=== PATIENT | male | born 1945 | race Asian ===

== ENCOUNTER 2024-11-30 08:19 | Day surgery (SDC) | payer OTHER, SELFPAY ==
[2024-11-30] VITALS (11 sets, daily range): BP systolic 123–165; BP diastolic 59–71; BMI 21.0
[2024-11-30 09:02] LABS: Glucose - Point of Care 167 mg/dl (70-99)
[2024-11-30] MEDS: LOW STRENGTH ASPIRIN 81 MG PO (09:08)
[2024-11-30] MEDS: NSS 177 ML IV (09:09)
--- NOTE | 2024-11-30 13:17 | ITS.CL.PN ---
Therapy Technician - Procedure Note
Procedure
Procedure Note:
CARDIAC CATHETERIZATION REPORT
Date of Procedure: 11/30/2024
Referring: Dr. Oscar Patel MD
Indication: accelerating angina
PROCEDURE(S)
1. left heart catheterization
2. coronary angiography
ACCESS: 6F right radial artery (closure: radial band)
CATHETERS
1. 6F JR4
2. 6F JL3.5
MODERATE SEDATION: 25 minutes of moderate sedation was utilized. An independent bacteriologist medical was present to assist with and help manage the patient's level of consciousness and physiologic status.
HEMODYNAMIC DATA
LV 138/7 (EDP 11) mmHg
AO 131/62 (mean 92) mmHg
CORONARY ANGIOGRAPHY
Dominance: Left
LM: Large, with eccentric calcified 60% stenosis
LAD: Large vessel giving rise to a moderate caliber branching diagonal and wrapping around the apex. There is a long segment of mild to moderate calcified disease spanning the entire proximal to mid LAD with a focal area of 50-60% stenosis distal
to the D1 takeoff. The mid to distal vessel is relatively disease free. The diagonal is a 2.0 mm vessel with focal severe ostial disease and diffuse moderate disease throughout.
LCx: Large dominant vessel giving rise to a moderate caliber OM1, small OM2, small OM 3, large branching LPL1, small LPL 2, small LPL3, and moderate caliber LPDA. There is ostial 50% narrowing leading into the takeoff of the OM1. There is diffuse
mild disease throughout the mid vessel and a focal 95% stenosis in the distal vessel just after the takeoff of the LPL 1. There is PRIYANKA II flow distal to this stenosis which is likely the culprit vessel for the patient's accelerating angina. The
LPL1 has a focal 60% ostial stenosis and its smaller inferior limb has severe ostial stenosis. The distal LPL vessel and LPDA have mild diffuse disease.
RCA: Small nondominant vessel with mild disease.
RADIATION: dose 141 mGy; DAP 9.0 Gy*cm2; fluoroscopy time 2.4 min
CONCLUSIONS
1. Normal LV filling pressure and no aortic stenosis
2. Complex multivessel coronary artery disease in a left dominant system as described
RECOMMENDATIONS
1. Continue aspirin and metoprolol, start high intensity statin, start Imdur 30.
2. Referral for coronary artery bypass grafting with SCHREIBER-LAD and additional grafts to the OM1, LPL1, LPDA. As the distal LCx is likely the patient's culprit lesion
Copy to: Dr. Oscar Patel MD (manufacturing business analyst); Dr. Isai Jim MD (PCP)
Signed: Wang Garcia MD, PhD
[2024-11-30 13:43] LABS: Glucose - Point of Care 143 mg/dl (70-99)
== END 2024-11-30 16:00 | disposition home or self-care (01) ==
LOC: CATH 08:19
PROVIDERS: ATTENDING PHYSICIAN Student in an Organized Health Care Education/Training Program; FAMILY PHYSICIAN Internal Medicine; OTHER PHYSICIAN Internal Medicine Cardiovascular Disease
DX: I25.110 Atherosclerotic heart disease of native coronary artery with unstable angina pectoris (principal); Z79.84 Long term (current) use of oral hypoglycemic drugs; Z79.899 Other long term (current) drug therapy; I10 Essential (primary) hypertension; E11.9 Type 2 diabetes mellitus without complications; E87.5 Hyperkalemia
CPT/HCPCS: 99152; 99153; 82962; 93458; Q9967

== ENCOUNTER → 2024-12-14 09:17 | Outpatient (REF) | payer OTHER, SELFPAY | LOC: HWRAD 09:17 | PROVIDERS: ATTENDING PHYSICIAN Thoracic Surgery (Cardiothoracic Vascular Surgery); FAMILY PHYSICIAN Internal Medicine | DX: I25.10 Atherosclerotic heart disease of native coronary artery without angina pectoris (principal) | CPT/HCPCS: 71250 ==

== ENCOUNTER 2024-12-19 07:08 | Inpatient (IN) | payer OTHER, SELFPAY ==
[2024-12-18 08:42] VITALS: BMI 23.1
[2024-12-18 08:43] LABS: Hematocrit 39.7 % (39.0-52.0); Hemoglobin 12.8 g/dL (13.0-18.0); Mean Corp Hgb Conc. 32.2 g/dL (33.0-37.0); Mean Corpuscular Volume 87.3 fL (80.0-94.0); Nucleated Red Blood Cells % 0 % (-); Platelet Count 321 10^3/uL (130-400); Red Cell Dist. Width 12.3 % (11.5-14.5)
[2024-12-18 08:47] LABS: Urine Character Clear (Clear)
[2024-12-18 08:48] LABS: INR 1.01; PT 13.6 Sec (11.4-14.6)
[2024-12-18 09:08] LABS: ALT (SGPT) 22 U/L (0-50); AST (SGOT) 26 U/L (17-59); Albumin 5.1 g/dl (3.5-5.0); Alkaline Phosphatase 31 U/L (38-126); Blood Urea Nitrogen 26 mg/dl (9-20); Calcium 9.7 mg/dl (8.4-10.2); Carbon Dioxide 27 mmol/L (22-30); Chloride 100 mmol/L (98-107); Estimated Creatinine Clearance 39 ml/min; Glucose 283 mg/dl (70-99); Potassium 4.7 mmol/L (3.5-5.1); Sodium 138 mmol/L (135-145); Total Protein 8.0 g/dl (6.3-8.2); eGFR 55.53
[2024-12-18 09:14] LABS: Glycohemoglobin (HgbA1c) 7.7 % (4.0-5.9)
[2024-12-18 09:19] LABS: Urine Red Blood Cell None Seen /HPF (0-2); Urine Squamous Cell None seen /LPF (Few); Urine White Cell 0-2 /HPF (0-5)
--- NOTE | 2024-12-18 10:29 | CM ---
spoke tp pt and daughter (translated to Tajik) in PAT's. we discussed preop CABG teaching including sternal and driving restrictions. he is prev indep, lives with his in a 2 story home with 1 step to enter. pts in a phys well and able to
help him but does not drive . his daughter lives in [facility], will be here until dc from hospital. son lives in [place], but pt has 2 nephews who are closeby and very supportive who will be assisting him when needed. he denies dme's. he has the ct surgery
book, soap, and instructions. he is agreeable to a f/u visit from the ct transitional care nurse after dc. plan is for CABG 12/19. cm role explained and all questions answered.
[2024-12-19] VITALS (15 sets, daily range): BP systolic 91–151; BP diastolic 58–73; BMI 22.3
--- NOTE | 2024-12-19 07:07 | W.CVOR.SURPR ---
CVOR Surgeon Immed Pre Op
-
I have examined this patient prior to performance of the scheduled procedure.
The patient's condition is unchanged from the time of the dictated/written History and
Physical and the patient is able to undergo the scheduled procedure.
CABG + LAAE
[2024-12-19] MEDS: MAGNESIUM OXIDE 400 MG PO (07:18)
[2024-12-19] MEDS: LOPRESSOR 25 MG PO (07:18)
[2024-12-19] MEDS: BACTROBAN 2% OINTMENT 1 APPLIC NASAL ×2 (07:18→21:44)
[2024-12-19] MEDS: PROTONIX 40 MG PO (07:18)
--- NOTE | 2024-12-19 07:48 | PTCARENOTE ---
received pt pre op into 2265, confirmed NPO since MN, shower x2 HOSTESS CASHIER. Interview questions and med rec completed w assistance if Swedish oncology navigator, pt was clipped and prepped w CHG. Pre op medications administered.
[2024-12-19 08:11] LABS: ACT+ - POC 123 Seconds (82-134)
[2024-12-19 08:32] LABS: Urine Character Cloudy (Clear)
--- NOTE | 2024-12-19 09:00 | CM ---
pt in OR today, cm following
[2024-12-19 09:19] LABS: Urine Red Blood Cell 80-90 /HPF (0-2)
[2024-12-19 09:29] LABS: ACT+ - POC 544 Seconds (82-134)
[2024-12-19 09:57] LABS: ACT+ - POC 843 Seconds (82-134)
[2024-12-19 10:08] LABS: B.E. - POC 5.7 mmol/L; Glucose - POC 161 mg/dl (70-99); HCO3 - POC 30 mmol/L (21-28); Hematocrit - POC 28 % PCV (42-52); Hemodilution- POC Yes; Hemoglobin Calculated - POC 9.6; Ionized Calcium - POC 0.99 mmol/L (1.15-1.33); Lactate - POC 1.08 mmol/L (0.36-0.75); O2 Saturation %Calculated-POC 99.9 % (94-98); PCO2 - POC 40 mmHg (35-48); PO2 - POC 328 mmHg (83-108); POC Comment CPB; Potassium - POC 4.4 mmol/L (3.5-5.1); Sodium - POC 138 mmol/L (136-145); Specimen Type - POC Arterial; pH - POC 7.48 (7.35-7.45)
[2024-12-19 10:22] LABS: ACT+ - POC 718 Seconds (82-134)
[2024-12-19 10:34] LABS: B.E. - POC 4.8 mmol/L; Glucose - POC 153 mg/dl (70-99); HCO3 - POC 28 mmol/L (21-28); Hematocrit - POC 29 % PCV (42-52); Hemodilution- POC Yes; Hemoglobin Calculated - POC 9.8; Ionized Calcium - POC 1.00 mmol/L (1.15-1.33); Lactate - POC 1.63 mmol/L (0.36-0.75); O2 Saturation %Calculated-POC 99.9 % (94-98); PCO2 - POC 36 mmHg (35-48); PO2 - POC 301 mmHg (83-108); POC Comment CPB; Potassium - POC 4.2 mmol/L (3.5-5.1); Sodium - POC 140 mmol/L (136-145); Specimen Type - POC Arterial; pH - POC 7.50 (7.35-7.45)
[2024-12-19 10:45] LABS: ACT+ - POC 660 Seconds (82-134)
[2024-12-19 11:02] LABS: B.E. - POC 2.7 mmol/L; Glucose - POC 107 mg/dl (70-99); HCO3 - POC 27 mmol/L (21-28); Hematocrit - POC 28 % PCV (42-52); Hemodilution- POC Yes; Hemoglobin Calculated - POC 9.5; Ionized Calcium - POC 1.00 mmol/L (1.15-1.33); Lactate - POC 2.85 mmol/L (0.36-0.75); O2 Saturation %Calculated-POC 99.9 % (94-98); PCO2 - POC 37 mmHg (35-48); PO2 - POC 268 mmHg (83-108); POC Comment WARM; Potassium - POC 4.1 mmol/L (3.5-5.1); Sodium - POC 143 mmol/L (136-145); Specimen Type - POC Arterial; pH - POC 7.46 (7.35-7.45)
[2024-12-19 11:07] LABS: ACT+ - POC 137 Seconds (82-134)
[2024-12-19 11:16] LABS: B.E. - POC 1.8 mmol/L; Glucose - POC 76 mg/dl (70-99); HCO3 - POC 26 mmol/L (21-28); Hematocrit - POC 27 % PCV (42-52); Hemodilution- POC Yes; Hemoglobin Calculated - POC 9.2; Ionized Calcium - POC 1.18 mmol/L (1.15-1.33); Lactate - POC 3.03 mmol/L (0.36-0.75); O2 Saturation %Calculated-POC 100.0 % (94-98); PCO2 - POC 36 mmHg (35-48); PO2 - POC 392 mmHg (83-108); POC Comment POST; Potassium - POC 3.5 mmol/L (3.5-5.1); Sodium - POC 142 mmol/L (136-145); Specimen Type - POC Arterial; pH - POC 7.46 (7.35-7.45)
--- NOTE | 2024-12-19 11:39 | W.PN.CT.SURG ---
CT Surgery Operative Note
-
CARDIAC SURGERY OPERATIVE REPORT
Preoperative Diagnosis: Multivessel Coronary Artery Disease with crescendo angina
Postoperative Diagnosis: Same
Procedure(s) Performed:
1. Standard Sternotomy with Aortic and Right Atrial Cannulation
2. Internal Mammary Artery Harvesting, Left
3. Coronary artery bypass grafting x 4 (In situ SCHREIBER to LAD, Ao to RSVG to OM1, Ao to RSVG to LPL sequential to LPDA)
4. Endoscopic vein harvesting of right and left lower extremity
5. Transesophageal echocardiography
6. Placement of Temporary Ventricular Pacing Wires
7. Left atrial appendage exclusion
Date of Surgery: 12/19/24
Comorbidities:
1. Multivessel coronary disease with crescendo angina
2. Type 2 diabetes mellitus
3. Hypertension
4. Hyperlipidemia
5. Elevated [id number]
Attending Surgeon: Virgil Lynn MD, MS
Assistants: Altagracia Anderson PA-C (present and necessary to assistant dean, endoscopic vein harvest, retraction, suction, exposure, suture management, and wound closure under my direction)
Anesthesiology: Roldan Shirley MD and Sherry Chandra CRNA
Scrub and Circulating RNs: Wanda Chadwick, RADHA, Tari Dang RN
Stoner Hand: Lynn Cornell CCP
Anesthesia: GETA
EBL: per perfusion records
Products: None
CPB Time: 77 minutes
Aortic Cross Clamp Time: 64 minutes
Indication(s) for Procedures: This is an 79-year-old male who has been experiencing accelerating angina. He underwent left heart cath which demonstrated multivessel coronary artery disease and was referred for coronary artery bypass. Given his
elevated [id number] score, his left atrial appendage be ligated at time of surgery as well. Due to his elevated age, he was at slightly higher risk than the average person for coronary revascularization however overall he was a good surgical
candidate.
Conduit(s) Quality:
SCHREIBER -excellent, smaller caliber but overall excellent flow
RSVG -the first piece from the right lower extremity had some varicosities and mismatch in size but overall was decent. The second piece was excellent
Target(s) Quality:
LPDA -very small, 1 mm vessel but had at least 20 cc a minute of flow, this was done as part of a sequential to the LPL branch and the flow on Transonic flow probe was 25 cc a minute with a pulse index of 3.7
OM1 -very large size target approximately 2 mm, had excellent flow here of approximately 15 cc a minute with a pulse index of 3.1
LAD -good quality target, excellent visual flow in the LAD territory upon release of the bulldog clamp, mean flow in the SCHREIBER graft was 10 to 11 cc a minute with a pulse index of 5.9
Findings: His left ventricular ejection fraction preoperatively on TTE from the office demonstrated normal function and no significant valvular pathology. He is unable to have the transesophageal probe passed down and so this was not done during
the case. The SCHREIBER was harvested in a skeletonized fashion. Following bypass grafting, test dose cardioplegia was given down each distal and confirmed patency and hemostasis.
Description of Procedure: The patient was taken to the operating room. Their identity and procedure to be performed were verified and they were positioned supine on the operating table. Induction via general anesthesia with endotracheal intubation
was performed and central venous access and arterial monitoring were inserted. A preoperative transesophageal echocardiogram was performed to assess cardiac function and valvular function. The patient was then prepped and draped from chin to feet in
a sterile fashion. A preoperative time-out was performed with all members of the team present. A midline chest incision was performed along with median sternotomy. Simultaneous endoscopic access of the right lower extremity for saphenous vein
harvest was obtained along with administration of an initial 5,000 units of IV heparin. A RulTract sternal retractor was positioned to exposure the left internal mammary bed. Additional vein was then sought from the left lower extremity at the
thigh. The mammary was harvested and found to have good flow. A bulldog clamp was applied to the distal end of the mammary after dividing it. It was wrapped in a papaverine soaked RayTec and replaced back into the left hemithorax. The RulTract was
exchanged for a median sternal retractor. The innominate vein was isolated. Full heparinization was given (a total of 40 units). We created a pericardial well. The aortic cannulation site was chosen where it was soft, pliable, and free of calcium.
Cannulation was performed with an arterial cannula in the ascending aorta and a triple-stage venous cannula through the right atrial appendage. The arterial cannula line had an appropriate bounce and correlating pressures with test dosing. Next, a
root vent/antegrade cannula was inserted into the ascending aorta. The ACT was confirmed to be over 400 and retrograde autologous priming was performed before commencing cardiopulmonary bypass. The pulmonary artery was away from the aorta
to facilitate a clamp site. The aortic cross-clamp was placed after decreasing the flow on the bypass and mean arterial pressure. A total of 1.2L initial dose of antegrade Del-Nido cardioplegia solution was given and planned for re-dosing every 75
minutes as necessary. There was rapid electro-mechanical arrest of the heart at 300 cc of cardioplegia. The left ventricle was observed for distention on echocardiogram and manual palpation. Cold slush was placed into a sponge and topically on the
RV while we systemically cooled to 34 degrees centigrade. Once I was fully rested and flaccid I rotated medially and ligated the left atrial appendage.
I positioned the heart to expose the distal left circumflex coronary at the posterior descending artery. A hoonah blade was used to expose the coronary and perform the arteriotomy. Coronary Watson scissors were used to enlarge the incision. The
saphenous vein was trimmed and beveled to an appropriate size. The distal anastomosis was performed using 8-0 prolene in an end-to-side fashion. Antegrade cardioplegia was administered into the graft. Appropriate hemostasis and flow were confirmed.
Next, I positioned the graft to accommodate for a sequential to the LPL branch. The underbelly of the vein graft was incised and enlarged with Watson scissors. The distal target was repaired in a similar fashion. A kjhy-rv-bcir anastomosis was
created with 7-0 Prolene. A bulldog clamp was placed and the distal end of the vein graft and test dose of antegrade was given down the vein graft to the LPL branch. This demonstrated appropriate hemostasis and flow. The graft was measured for
length to the aorta and cut. A suitable site on the first obtuse marginal was chosen. We dissected and prepared the distal target in a similar fashion. An end-to-side anastomosis was created with a 7-0 prolene. Antegrade cardioplegia was
administered into the graft. Appropriate hemostasis and flow were confirmed. The graft was measured for length to the aorta and cut. A suitable target on the mid/distal left anterior descending after the diagonal vessels was identified. We dissected
and prepared the distal target in a similar fashion. We retrieved the SCHREIBER from the chest and created a pericardial opening while being cognizant of the phrenic nerve to facilitate the course of the mammary. The distal end of the mammary was prepped
and beveled to size. We verified orientation and length of the NORMA and found brisk flow. An end-to-side anastomosis was created with a 7-0 prolene. We temporarily released the bulldog clamp on the mammary to inspect flow. Perfusion to the LAD
territory was visualized and hemostasis was confirmed. The bull clamp was replaced on the mammary. The heart was filled and the root was distended with antegrade cardioplegia to make final assessment of graft length and orientation. We created 2
aortotomies using a #11 blade then a 3.6mm aortic punch. The proximal anastomoses were created in an end-to-side fashion using 6-0 prolene. At the the same time, we re-warmed to 36.5 degrees centigrade. The bulldog clamp was removed from the
mammary. Temporary bipolar ventricular pacing wires were placed on the base of the right ventricle. The patient was placed in a Trendelenburg position and flows on bypass were lowered. The aortic cross clamp was removed and flows were slowly brought
back up. All bypass grafts were inspected and were free from kinking or twisting. The distal and proximal anastomoses appeared hemostatic. Once transesophageal echocardiography appeared satisfactory for de-airing, the flows were temporarily lowered
for root vent removal. After verifying acceptable parameters, we initiated weaning from cardiopulmonary bypass. Once we were off cardiopulmonary bypass, the venous cannula was clamped and removed. A test dose of protamine was administered and the
patient was monitored for any adverse reaction before resuming protamine. Once half of the protamine dose was delivered, pump suckers were turned off and the systolic blood pressure was lowered for aortic decannulation. The aortic cannula was
removed and pursestrings were tied down. All cannulation sites were oversewn with a 4-0 prolene. The mammary bed was inspected and hemostasis was confirmed. Once the mediastinum was hemostatic, 19Fr Kaushik drain was placed in the left pleural cavity
and two 24Fr Kaushik drains were placed within the pericardium. The sternum was approximated with 4 #7 single and 3 #8 double stainless steel wires. Fascia was approximated with #1 vicryl suture. The subcutaneous, dermis and epidermis were closed in
layers in a running fashion. The skin wound was cleansed and dressed.
All instrument, sponge, and needle counts were confirmed to be correct x 2 at the end of the operation. The patient was transferred to the cardiac intensive care unit in critical but stable condition.
I, Dr. Virgil Lynn, was present, scrubbed for, and performed all critical elements of this procedure.
Virgil Lynn MD, MS
Cardiothoracic Surgeon
[facility]
This operative dictation was created using the [employer] dictation system. Please excuse any grammatical, typographical, or 'sound alike' errors
--- NOTE | 2024-12-19 12:01 | W.PN.UPDATE ---
Update Note
Progress Note Update
79 y/o bengali speaking male presented on 12/19 for elective CABG with Dr. Lynn
NEURO: sedated on precedex , pupils +X2mm B/L
RESP: #8OT @23cm> 500/40%/14/5. Lungs clear B/L. 2 mediastinal (10cc on arrival) and L pleural (20cc on arrival) chest tubes to -20cm suction. Sanguineous drainage
CV: RRR +S1, S2, no S3, no�rub, no murmur. Dermabond to median sternotomy. RIJ w/Slicc
ABD: round, soft, no BS
EXT: no edema, +2/4 DP pulses B/L, no femoral bruit, left radial A-line intact
: Ignacio with clear yellow urine
�
A/P: POD #0 s/p CABG x4
CARLOS: EF�nml
- wean and extubate
- Monitor CT and urine output
- Follow up labs and CXR
- EKG showed 1st degree AVB; junctional in OR and require transient pacing
- Wean levophed for maps >65/SBP goal 90-130
- Will start ASA tonight
- Cards consulted
�
# acute surgical blood loss anemia-expected
- trend CBC
�
# T2DM (A1C XX)
- insulin infusion x 48h
- resume oral meds in 48 hrs
- DM management tear down man consulted
�
# Hyperlipidemia
- resume�statin
[2024-12-19 12:02] LABS: Glucose - Point of Care 76 mg/dl (70-99)
[2024-12-19 12:14] LABS: B.E. 1.6 mmol/L; HCO3 25.8 mmol/L (21-28); O2 Saturation % 97.6 % (94-98); PCO2 38 mmHg (35-48); PO2 135 mmHg (83-108); Potassium 3.9 mMOL/L (3.5-5.1); Sodium 139 mMOL/L (136-145)
[2024-12-19 12:21] LABS: Hematocrit 29.9 % (39.0-52.0); Hemoglobin 10.0 g/dL (13.0-18.0); Platelet Count 216 10^3/uL (130-400)
[2024-12-19 12:25] LABS: B.E. - POC -0.7 mmol/L; Glucose - POC 198 mg/dl (70-99); HCO3 - POC 24 mmol/L (21-28); Hematocrit - POC 32 % PCV (42-52); Hemodilution- POC No; Hemoglobin Calculated - POC 10.8; Ionized Calcium - POC 1.12 mmol/L (1.15-1.33); Lactate - POC 1.12 mmol/L (0.36-0.75); O2 Saturation %Calculated-POC 99.7 % (94-98); PCO2 - POC 39 mmHg (35-48); PO2 - POC 197 mmHg (83-108); POC Comment PRE; Potassium - POC 3.8 mmol/L (3.5-5.1); Sodium - POC 140 mmol/L (136-145); Specimen Type - POC Arterial; pH - POC 7.40 (7.35-7.45)
[2024-12-19 12:29] LABS: Blood Urea Nitrogen 22 mg/dl (9-20); Estimated Creatinine Clearance 56 ml/min; Glucose 73 mg/dl (70-99); Magnesium 3.1 mg/dl (1.6-2.3)
--- NOTE | 2024-12-19 12:30 | CON.INTV ---
Consultation
Consultation Request
Date/Time Consultation Requested: 12/19
Date/Time Consultation Performed: 12/19
Reason for Consultation: Critical care
Medical History
-
History of Present Illness:
History obtained from the chart as patient is currently intubated and sedated. 79-year-old male with history of hypertension, hyperlipidemia, diabetes who underwent cardiac catheterization 11/30/2024 which revealed multivessel coronary disease
complex anatomy with left dominant system. Echocardiogram with EF 75%. Patient underwent CABG 12/19/2024 without complication. Did not require blood products. Presently on 3 mg of norepinephrine. Chest tube output is minimal. We are asked to
help from critical care standpoint 12/19
.
PMH: Hypertension, hyperlipidemia, coronary disease, type 2 diabetes
Past Medical History
Past Medical History: None (See above)
Past Surgical History: None (See above)
Social History
Tobacco: Former Smoker (Quit )
Alcohol: None
Drug: None
Personal:
Living: With Family
Employment: Retired
Family History
Family History: Unable to Obtain
Allergies / Home Medications
Allergies
Allergy/AdvReac Type Severity Reaction Status Date / Time
No Known Allergies Allergy Unverified 12/14/24 15:30
Home Medications
�Medication �Instructions �Recorded �Confirmed �Last Taken �Type
aspirin 81 mg chewable tablet 81 mg PO DAILY Blood Clot 11/30/24 12/19/24 12/16/24 History
Prevention/Tx
fenofibrate micronized 134 mg 134 mg PO DAILY High Cholesterol 11/30/24 12/19/24 12/12/24 History
capsule
glipizide 10 mg tablet 10 mg PO DAILY Diabetes 11/30/24 12/19/24 12/16/24 History
lisinopril 20 mg tablet 20 mg PO DAILY Blood Pressure 11/30/24 12/19/24 12/16/24 History
metformin 500 mg tablet 500 mg PO DAILY Diabetes 11/30/24 12/19/24 12/16/24 History
Held on 11/30/24.
Instructions: Resume on
12/02/24.
metoprolol succinate 25 mg 25 mg PO DAILY Blood Pressure 12/14/24 12/19/24 12/16/24 History
tablet,extended release 24 hr
omega 0-qbt-udw-fish oil 900 1 cap PO DAILY Supplement 12/14/24 12/19/24 12/12/24 History
mg-1,400 mg capsule,delayed release
isosorbide mononitrate 30 mg 30 mg PO DAILY Heart 12/19/24 12/19/24 12/16/24 History
tablet,extended release 24 hr Disease/Condition
rosuvastatin 20 mg tablet 20 mg PO DAILY High Cholesterol 12/19/24 12/19/24 12/16/24 History
Review of Systems
-
Unable to Obtain full review of systems at this time due to: Patient Intubation
All other systems: Negative unless noted
Vitals / Labs / Diagnostic Testing
Vital Signs
Temp Pulse Resp BP Pulse Ox
96.8 F L 89 16 151/71 97
12/19/24 12:27 12/19/24 07:15 12/19/24 07:15 12/19/24 07:15 12/19/24 12:00
Lab Data
12/19/24 11:59
Laboratory Results
12/19/24
11:59
pH 7.44
pCO2 38
pO2 135 H
HCO3 25.8
O2 Delivery Level
Diagnostic Testing:
Physical Exam
-
HEENT: Normocephalic and Other (Right IJ, A-line, chest tube)
Cardiovascular: S1/S2, Regular Rhythm, Murmur (n), Rub (n), Peripheral Edema (n) and Other (Right lower extremity bandage)
Respiratory: Wheeze (n), Rales (n), Rhonchi (n), Non-Labored Respirations and Other (ET tube, chest incision dressed)
GI: Soft, Non Distended and Non Tender
Neurology: Other (Sedated)
Skin: Other (Mild pallor)
General: Comfortable
Assessment
-
79-year-old male with history of hypertension, hyperlipidemia, persistent angina found to have complex multivessel coronary disease per catheterization. He is status post CABG x 4 on 12/19/2024. We are asked to help from critical care standpoint
S/p CABG x 4, 12/19/24
Multivessel coronary disease, complex anatomy per catheterization 11/30/2024
EF 75%
Postoperative anemia
Hyperglycemia on insulin drip
First-degree AV block/junctional rhythm requiring transient pacing
IntraOp
Conditions present prior to admission
Hypertension/hyperlipidemia
Type 2 diabetes
Distant tobacco history, quit
Plan/recommendations
At this time, patient is critically ill but stable
Remains on volume-cycled ventilation, adequate airway pressure, adequate oxygenation/ventilation
Postoperative chest x-ray without acute findings, no pneumothorax
Chest tube in place, no significant drainage
Remains on low-dose norepinephrine
Moving forward
Continue with management per CT surgery
Marginal blood pressure noted, continue with pressors, may require fluid boluses
Normal EF preoperatively
Follow urine output, creatinine
Remains on insulin drip. History of type 2 diabetes
Follow blood sugars
Postoperative anemia, hemoglobin 10
Chest tube drainage minimal
CT chest from 12/14/2024 with minimal bibasilar interstitial changes
Mild bronchial airway thickening at the base
Calcified adenopathy, calcified granuloma
Distant tobacco history quit
No indication for follow-up imaging at this time
Reviewed with critical care nursing
Will follow
TCCT 31 min
[2024-12-19 12:31] LABS: INR 1.49; PT 18.2 Sec (11.4-14.6)
[2024-12-19 12:32] LABS: APTT 41.2 Sec (23.4-35.0)
--- NOTE | 2024-12-19 12:34 | PTCARENOTE ---
received pt from the CVOR into 2266, sinus rhythm on tele w 1st degree HB, epicardial V wire set to VVI backup 30/10. + peripheral pulses, no edema noted. # 8 ETT/22cm right lip, Lungs diminished, pox 99% on SIMV 40% 450 16/ +[address] x3 w minimal
amount of red drainage. Ignacio draining yellow. Right radial shemar leveled and zeroed, bp 114/62, Right IJ cordis w slick, cvp 10, piv flushes easily.
DRIPS: Levophed 2mcg/min
Precedex 0.5mcg/kg/hr
Insulin titrated per glycemic protocol
--- NOTE | 2024-12-19 12:50 | W.PN.CD ---
Addendum entered and electronically signed by Josh Campo MD 12/20/24 08:29:
Late chart entry. I saw and examined the patient. I performed the substantive parts of the medical decision making. The note below by KM Cao accurately reflects our thoughts.
Doing well after CABG. EKG showed AV Wenckebach w/o ST elevation.
CAD, improve after CABG
AV node disease, suspect it will improve, monitor for progression and need of pacing.
HTN, stable
DM
Original Note:
Today's Communication / Plan
-
Follow telemetry
Postoperative management per CT surgery
Impression / Plan
-
I/P: 79 Hebrew M with HTN, HLD, and T2DM, who presented with accelerating angina to Dr. Patel which prompted cardiac catheterization which found multivessel disease. He is here for CABG.
Primary reduction furnace operator helper: Dr. Patel
CAD s/p CABG x 4 (In situ SCHREIBER to LAD, Ao to RSVG to OM1, Ao to RSVG to LPL sequential to LPDA) by Dr. Lynn 12/19/2024
- No CARLOS, probe unable to be passed
- EKG: Sinus rhythm with first-degree AV block, junctional in OR and required transient pacing
- On low-dose Levophed
- Follow telemetry
Hypertension
- Follow postoperatively, lisinopril on hold preoperatively
Hypercholesterolemia
- No recent lipid panel for review, continue rosuvastatin 20 mg
Type 2 diabetes mellitus with hyperglycemia
- HgbA1c 7.7%, on insulin drip
Physical Exam
Vital Signs/Labs
Vital Signs
Temp Pulse Resp BP Pulse Ox
96.8 F L 79 16 112/73 98
12/19/24 12:27 12/19/24 12:30 12/19/24 12:30 12/19/24 12:18 12/19/24 12:30
12/18/24 12/19/24 12/20/24
06:59 06:59 06:59
Actual Weight 62.9 kg 60.9 kg
12/19/24 11:59
PT 18.2 Sec (11.4-14.6) H 12/19/24 11:59
INR 1.49 12/19/24 11:59
APTT 41.2 Sec (23.4-35.0) H 12/19/24 11:59
Magnesium 3.1 mg/dl (1.6-2.3) H 12/19/24 11:59
Physical Exam
Constitutional: No acute distress and Comfortable
EENT: Anicteric and Moist mucous membranes
Cardiovascular: Rhythm & rate is regular, Pedal edema is absent and Rub present
Respiratory: Lungs clear to auscul.
GI: Soft, Distention absent and Flat
Neuro/Psych: Other (Sedation)
Other: Skin (Warm and dry without edema)
Data Reviewed
-
Date of Service: December 19, 2024
Labs: Labs Reviewed by me
Old Records: Reviewed
[2024-12-19 13:07] LABS: Glucose - Point of Care 154 mg/dl (70-99)
[2024-12-19 13:09] LABS: Glucose - Point of Care 137 mg/dl (70-99)
[2024-12-19] MEDS: KCL 50 IV ×2 (13:11→14:00)
[2024-12-19] MEDS: NOVOLOG FLEXPEN SC ×2 (13:12→16:14)
[2024-12-19] MEDS: ANCEF 10 IV ×2 (13:12)
[2024-12-19] MEDS: NSS 500 IV (13:12)
--- NOTE | 2024-12-19 13:34 | PTCARENOTE ---
and daughter at bedside, updated.
[2024-12-19] MEDS: TYLENOL PO ×2 (13:36→21:43)
[2024-12-19 13:59] LABS: Hepatitis B Surface Antigen Negative (Negative)
[2024-12-19 14:06] LABS: Glucose - Point of Care 155 mg/dl (70-99)
[2024-12-19 14:16] LABS: Hepatitis C Antibody Negative (Negative)
--- NOTE | 2024-12-19 14:50 | PTCARENOTE ---
pt w irregular rhythm on tele, ekg obtained, CT JENNI and cardiology PHYSIOTHERAPIST'S ASSISTANT made aware.
[2024-12-19 15:08] LABS: Glucose - Point of Care 127 mg/dl (70-99)
[2024-12-19 15:59] LABS: Glucose - Point of Care 108 mg/dl (70-99)
--- NOTE | 2024-12-19 16:00 | PTCARENOTE ---
repeat labs drawn and sent, CHG bath completed.
[2024-12-19 16:09] LABS: Hematocrit 32.9 % (39.0-52.0); Hemoglobin 10.6 g/dL (13.0-18.0); Platelet Count 257 10^3/uL (130-400)
[2024-12-19] MEDS: NEURONTIN PO ×2 (16:14→21:43)
--- NOTE | 2024-12-19 17:13 | PTCARENOTE ---
pt placed on CPAP wean by RT
[2024-12-19 17:14] LABS: Glucose - Point of Care 135 mg/dl (70-99)
[2024-12-19 18:02] LABS: B.E. - POC 2.3 mmol/L; Blood Urea Nitrogen - POC 24 mg/dl (3-120); Chloride - POC 107 mmol/L (96-111); Creatinine - POC 1.17 mg/dl (0.3-1.0); Glucose - POC 122 mg/dl (70-99); HCO3 - POC 29 mmol/L (21-28); Hematocrit - POC 35 % PCV (42-52); Hemodilution- POC Yes; Hemoglobin Calculated - POC 11.8; Ionized Calcium - POC 1.31 mmol/L (1.15-1.33); Lactate - POC 1.17 mmol/L (0.36-0.75); O2 Saturation %Calculated-POC 99.1 % (94-98); PCO2 - POC 54 mmHg (35-48); PO2 - POC 149 mmHg (83-108); Potassium - POC 4.4 mmol/L (3.5-5.1); Sodium - POC 148 mmol/L (136-145); Specimen Type - POC Arterial; pH - POC 7.34 (7.35-7.45)
--- NOTE | 2024-12-19 18:05 | PTCARENOTE ---
EPOC ABG reviewed w CT JENNI and RT, Pt to remain on CPAP.
[2024-12-19] MEDS: ASPIRIN 300 MG RECTAL (18:15)
[2024-12-19] MEDS: ANCEF 5 IV (18:15)
[2024-12-19 18:59] LABS: B.E. - POC 2.7 mmol/L; Blood Urea Nitrogen - POC 24 mg/dl (3-120); Chloride - POC 109 mmol/L (96-111); Creatinine - POC 1.14 mg/dl (0.3-1.0); Glucose - POC 118 mg/dl (70-99); HCO3 - POC 28 mmol/L (21-28); Hematocrit - POC 34 % PCV (42-52); Hemodilution- POC Yes; Hemoglobin Calculated - POC 11.4; Ionized Calcium - POC 1.22 mmol/L (1.15-1.33); Lactate - POC 1.18 mmol/L (0.36-0.75); O2 Saturation %Calculated-POC 99.2 % (94-98); PCO2 - POC 46 mmHg (35-48); PO2 - POC 142 mmHg (83-108); Potassium - POC 4.3 mmol/L (3.5-5.1); Sodium - POC 146 mmol/L (136-145); Specimen Type - POC Arterial; pH - POC 7.40 (7.35-7.45)
[2024-12-19 19:00] LABS: Glucose - Point of Care 110 mg/dl (70-99)
--- NOTE | 2024-12-19 19:15 | PTCARENOTE ---
Respiratory therapist @ bedside. Patient extubated per CT PA Mariajose without complication to 6L NC @ 1915. POX 100% on 6L NC. IS 500.
--- NOTE | 2024-12-19 19:20 | PTCARENOTE ---
Patient received from RN @ 1900. Patient intubated on CPAP trial. ABG drawn and quickly extubated @ 1915. AOx3 patient is Divehi speaking and follows all commands w/ unix system administrator. SR w/ first degree block and frequent PAC's. BP 111/60 HR 73.
Heart sounds audible w/ rub. V-wires set to 30/10. Radial and pedal pulses present. IS 500 POX 100% 6L NC. Lungs clear but diminished in bases bilaterally. Left pleural chest tube set to -20 suction draining red fluid. No crepitus, tidaling,
or air leaks. 2x mediastinal CT set to -20 suction draining red fluid. Tidaling noted but no crepitus or air leaks. Bowel hypoactive. Ignacio draining clear yellow urine. Sternal incision well approximated FLOOR TECH. Right and left groin puncture well
approximated FLOOR TECH. Right and left knee incision nahomi wrap C/D/I. RIJ cordis w/ slick. Right radial A-line leveled and zeroed. Right PIV patent and intact. Levo infusing per protocol. See worklist for more details.
--- NOTE | 2024-12-19 19:27 | RESPNOTE ---
pt extubated at 1915 per MD, pt suctioned prior to extubation, tolerated extubation well, placed on 6L NC no stridor or wheezing present. pt able to vocalizw
[2024-12-19] MEDS: SENOKOT PO (19:46)
[2024-12-19 21:08] LABS: Glucose - Point of Care 91 mg/dl (70-99)
[2024-12-19] MEDS: OFIRMEV 100 IV (21:43)
[2024-12-19 23:11] LABS: Glucose - Point of Care 136 mg/dl (70-99)
--- NOTE | 2024-12-19 23:25 | PTCARENOTE ---
Patient reassessed. SR w/ first degree block on monitor. BP 115/54 HR 83 POX 97% 2L NC.
[2024-12-20] VITALS (28 sets, daily range): BP systolic 94–134; BP diastolic 50–76; PULSE 86; O2SAT 95–97; BMI 23.1
--- NOTE | 2024-12-20 00:44 | W.PN.CT ---
Today's Communication / Plan
-
Plan:
-No major issues overnight. Hemodynamically and neurologically intact
-Successfully extubated on 12/19 @ 1915
-Weaned off Levophed gtt overnight, remains on insulin gtt per protocol
-No swan, MVO2 off cordis 71.6, U/O mL since OR 1300 mL
-Currently in NSR with 1st deg HB
-H/H stable @ 12/21.6
-Monitor chest tube output: 2meds 50/130, L Pleural 60/120. F/U cxr
-Holding Amiodarone and Lopressor given postop Junctional/Wenckebach, long 1st deg HB. BP soft this morning, hold BB
-Cont. current meds (ASA, Plavix, Crestor)
-D/C'd SLIC and a-line @ 0415
-D/C'd jones catheter @ 0600
-Will renew insulin gtt and consult diabetes FIELD ENUMERATOR, pt's A1C 7.7
-Maintain temp PW
-Maintain cordis
-Wean O2 as tolerated
-Encourage use of IS
-OOB into chair/Ambulate
Assessment / Plan
-
Assessment:
-S/P Standard Sternotomy/Coronary artery bypass grafting x 4 (In situ SCHREIBER to LAD, Ao to RSVG to OM1, Ao to RSVG to LPL sequential to LPDA)/Endoscopic vein harvesting of right and left lower extremity/Left atrial appendage exclusion, by Dr. Lynn,
12/19/24, pod#1
-Multivessel coronary disease with crescendo angina
-Type 2 diabetes mellitus (hgb A1C 7.7)
-Hypertension
-Hyperlipidemia
-Elevated [id number] (5)
-Acute postop blood loss/Anemia (stable without transfusion)
-Acute postop atelectasis
-Acute postop hypovolemia with subsequent hypervolemia
-Intraop Junctional rhythm
-Acute postop Junctional rhythm
-Acute postop Wenckebach
Discussed patient care with: Cardiology, Nursing, Respiratory Therapy, Pharmacy and Care Team
Subjective
Procedure
Standard Sternotomy/Coronary artery bypass grafting x 4 (In situ SCHREIBER to LAD, Ao to RSVG to OM1, Ao to RSVG to LPL sequential to LPDA)/Endoscopic vein harvesting of right and left lower extremity/Left atrial appendage exclusion, by Dr. Lynn, 12/19/24
-
Date of Service: December 20, 2024
C/O mild incisional pain, otherwise feels well
Objective Data
-
PT 18.2 Sec (11.4-14.6) H 12/19/24 11:59
INR 1.49 12/19/24 11:59
APTT 41.2 Sec (23.4-35.0) H 12/19/24 11:59
Vital Signs
Vital Signs
Temp Pulse Resp BP Pulse Ox
99.1 F 84 14 111/59 97
12/20/24 00:00 12/20/24 00:00 12/20/24 00:00 12/20/24 00:00 12/20/24 00:00
CT Intake/Output/Weight
12/19/24 12/19/24 12/20/24
06:59 18:59 06:59
Intake Total 239.5 / 539.8 300.3 / 539.8
Output Total 1025 / 1275 250 / 1275
Balance -785.5 / -735.2 50.3 / -735.2
SaO2: 97 (2L)
Physical Exam
-
General: Awake, Oriented and AOx3
Cardiovascular: Regular rate & rhythm, No Murmurs and No Gallop
Respiratory: Decreased Breath Sounds (at bases, otherwise clear)
Sternum: Stable
Incision: Dry, Intact and Dressing Intact
Extremities: Other (+trace edema)
Data Reviewed
-
Lab Results: Results Reviewed
Medications: Active Meds Reviewed
Chest X-Ray: Report Reviewed and Image Reviewed
ECG: Report Reviewed and Image Reviewed
[2024-12-20] MEDS: LEVOPHED 250 IV (00:45)
[2024-12-20] MEDS: CALCIUM GLUCONATE 130 MG IV (00:50)
--- NOTE | 2024-12-20 00:53 | PTCARENOTE ---
Unable to wean Levo. CT PA Ed aware. 3g calcium gluconate ordered per CT PA Ed.
[2024-12-20 00:59] LABS: Glucose - Point of Care 107 mg/dl (70-99)
[2024-12-20] MEDS: ANCEF 5 IV ×2 (02:04→09:46)
[2024-12-20 02:57] LABS: Glucose - Point of Care 86 mg/dl (70-99)
[2024-12-20 03:09] LABS: Hematocrit 30.6 % (39.0-52.0); Hemoglobin 10.0 g/dL (13.0-18.0); Mean Corp Hgb Conc. 32.7 g/dL (33.0-37.0); Mean Corpuscular Volume 87.9 fL (80.0-94.0); Platelet Count 242 10^3/uL (130-400); Red Cell Dist. Width 12.6 % (11.5-14.5)
[2024-12-20 03:29] LABS: Blood Urea Nitrogen 27 mg/dl (9-20); Calcium 9.9 mg/dl (8.4-10.2); Carbon Dioxide 25 mmol/L (22-30); Chloride 107 mmol/L (98-107); Estimated Creatinine Clearance 51 ml/min; Glucose 89 mg/dl (70-99); Magnesium 2.3 mg/dl (1.6-2.3); Potassium 4.2 mmol/L (3.5-5.1); Sodium 138 mmol/L (135-145); eGFR > 60.00
[2024-12-20] MEDS: NSS 250 IV (03:56)
--- NOTE | 2024-12-20 04:32 | PTCARENOTE ---
Patient reassessed. Labs obtained. [place] and A-line removed per CT PA Ed.
[2024-12-20 04:49] LABS: Glucose - Point of Care 123 mg/dl (70-99)
[2024-12-20] MEDS: TYLENOL 975 MG PO ×3 (05:59→20:18)
--- NOTE | 2024-12-20 06:18 | PTCARENOTE ---
Ignacio removed @ 0600 per order. Due to void @ 1200.
[2024-12-20 07:11] LABS: Glucose - Point of Care 101 mg/dl (70-99)
--- NOTE | 2024-12-20 07:51 | W.PN.ANS.POP ---
Anesthesia Post Operative
- Anesthesia Post Op Note
Vital Signs Stable-See Nursing Note: Yes
Airway Patent: Yes
Adequate Pain Control: Yes
Change in Mental Status: No
Current Postoperative Nausea & Vomiting: No
Anesthesia Complications: No
General Anesthetic Recall: No
Unplanned Admission: No
Post Op Hydration Adequate: Yes
--- NOTE | 2024-12-20 07:57 | W.PN.INTV ---
Today's Communication / Plan
Recommendations
Pain control, incentive spirometry
Insulin drip continues
Out of bed to chair, ambulate
First-degree heart block noted, being followed. Meds adjusted/held
Assessment
-
79-year-old male with history of hypertension, hyperlipidemia, persistent angina found to have complex multivessel coronary disease per catheterization. He is status post CABG x 4 on 12/19/2024. We are asked to help from critical care standpoint
S/p CABG x 4, 12/19/24
Multivessel coronary disease, complex anatomy per catheterization 11/30/2024
EF 75%
Postoperative anemia
Hyperglycemia on insulin drip
First-degree AV block/junctional rhythm requiring transient pacing
IntraOp
Conditions present prior to admission
Hypertension/hyperlipidemia
Type 2 diabetes
Distant tobacco history, quit
Plan/recommendations
At this time, patient appears to be comfortable
mild splinting on exam, incisional discomfort
Weaned off norepinephrine
Hemoglobin stable
Remains on insulin drip
Moving forward
Continue with management per CT surgery
Off pressors
Normal EF preoperatively
EKG with first-degree block
Beta-balbir being held
Follow urine output, creatinine
Remains on insulin drip. History of type 2 diabetes
Follow blood sugars
Diabetic ROLLER PRINTER consulted
Postoperative anemia, hemoglobin stable
Chest tube drainage minimal
CT chest from 12/14/2024 with minimal bibasilar interstitial changes
Mild bronchial airway thickening at the base
Calcified adenopathy, calcified granuloma
Distant tobacco history quit
No indication for follow-up imaging at this time
Reviewed with critical care nursing
Subjective Dataa
Subjective Data
Date of Service:
Date of Service: December 20, 2024
Subjective:
Complaining of mild incisional discomfort but otherwise denies abdominal pain. Extubated without difficulty.
Objective Data
Data Reviewed
Vital Signs / I&O / Oxygen:
Vital Signs
Temp Pulse Resp BP Pulse Ox
98.8 F 84 20 107/53 96
12/20/24 06:00 12/20/24 06:00 12/20/24 06:00 12/20/24 06:00 12/20/24 06:00
Intake and Output
12/19/24 12/20/24 12/21/24
06:59 06:59 06:59
Intake Total 703.8 / 703.8
Output Total 1655 / 1655
Balance -951.2 / -951.2
SaO2 [CPAP] 99
SaO2 [SIMV] 99
SaO2 96
Nasal Cannula flow liters per 2
minute
Physical Exam
General: Comfortable and Other (IJ, chest tube)
HEENT: Normocephalic and Anicteric
Cardiovascular: S1-S2, Regular Rhythm, Murmur (n), Rub (n), Peripheral Edema (n) and Other (Lower extremity bandage in place)
Respiratory: Wheeze (n), Crackles (n), Rhonchi (n), Non-Labored Respirations and Other (Mild splinting on exam)
GI: Soft, Non Distended and Non Tender
Neurology: Awake, Alert and No Motor Deficits
Skin: Cyanosis (n), Jaundice (n) and Rash (n)
Labs/Micro/Reports
Lab Data
12/20/24 02:52
12/20/24 02:52
Laboratory Results
12/19/24
11:59
PT 18.2 H
INR 1.49
APTT 41.2 H
pH 7.44
pCO2 38
pO2 135 H
HCO3 25.8
O2 Delivery Level
Microbiology
12/18/24 08:22 Nose MRSA Screen - Final
No Methicillin Resistant Staphylococcus aureus isolated.
[2024-12-20] MEDS: BACTROBAN 2% OINTMENT 1 APPLIC NASAL ×2 (09:30→20:19)
[2024-12-20 09:41] LABS: Glucose - Point of Care 88 mg/dl (70-99)
[2024-12-20 09:46] LABS: Glucose - Point of Care 94 mg/dl (70-99)
[2024-12-20] MEDS: LOW STRENGTH ASPIRIN 81 MG PO (09:46)
[2024-12-20] MEDS: PROTONIX 40 MG PO (09:46)
[2024-12-20] MEDS: PLAVIX 75 MG PO (09:47)
[2024-12-20] MEDS: MAGNESIUM OXIDE 400 MG PO ×2 (09:47→20:19)
[2024-12-20] MEDS: CRESTOR 20 MG PO (09:47)
[2024-12-20] MEDS: NOVOLOG FLEXPEN 4 UNITS SC ×2 (09:49→13:06)
[2024-12-20] MEDS: LIDOCAINE 4% PATCH TOPICAL (09:49)
[2024-12-20] MEDS: NEURONTIN 100 MG PO ×2 (09:49→20:19)
[2024-12-20] MEDS: SENOKOT 8.6 MG PO ×2 (09:50→20:21)
[2024-12-20] MEDS: NSS IV (09:50)
[2024-12-20] MEDS: ROXICODONE 2.5 MG PO (09:55)
--- NOTE | 2024-12-20 11:42 | PN.DE.MGMTRT ---
Insulin Management
- -
Diabetes Management Consult
Patient admitted 12/19 for CABG. PMH HTN, HLD, diabetes, hyperkalemia, cardiac cath 11/30/24 - MV CAD. Prior to admission was taking glipizide 10 mg daily, metformin 500 mg daily. A1C 7.7%, cr 1, eGFR > 60.
POD 1 patient is awake alert and oriented oob in chair. Speaks Telugu only. Discussed diabetes care using spray machine tender 797. Patient has had diabetes 15 years, follows with family doctor for diabetes care. Uses [employer] 2 CGM for glucose
monitoring. Confirmed his home diabetes medications. Discussed via spray machine tender his A1C 7.7% and benefit of SGLT-2. Patient is in agreement.
Patient currently receiving critical care glycemic protocol insulin infusion requiring .6 to 3.5 units of insulin. Will continue insulin infusion today and assess for readiness to transition to home regimen with SGLT2 in AM.
Request CM check cost of SGLT2.
Discussed with nurse
Will follow.
Diabetes History
- -
Type of Diabetes: 2
Pre-Admission Diabetes Regimen
12/19/24 12/20/24
11:59 02:52
Creatinine 0.9 1.0
Lab Results
Hemoglobin A1c 7.7 % (4.0-5.9) H 12/18/24 08:20
Insulin Pump Settings
IP Diabetes Regimen
12/19/24 12/19/24 12/19/24
11:58 11:59 13:06
Glucose 73
POC Glucose 76 154 H
12/19/24 12/19/24 12/19/24
13:08 14:05 15:08
Glucose
POC Glucose 137 H 155 H 127 H
12/19/24 12/19/24 12/19/24
15:57 17:12 18:59
Glucose
POC Glucose 108 H 135 H 110 H
12/19/24 12/19/24 12/20/24
21:07 23:09 00:56
Glucose
POC Glucose 91 136 H 107 H
12/20/24 12/20/24 12/20/24
02:52 02:56 04:48
Glucose 89
POC Glucose 86 123 H
12/20/24 12/20/24 12/20/24
07:10 09:39 09:45
Glucose
POC Glucose 101 H 88 94
Patient Education
[2024-12-20 12:08] LABS: Glucose - Point of Care 165 mg/dl (70-99)
[2024-12-20] MEDS: LOPRESSOR 12.5 MG PO ×2 (12:12→20:19)
--- NOTE | 2024-12-20 12:14 | CM ---
priced jadon at pts pharm- [facility]- his copay is $15/month
[2024-12-20] MEDS: NOVOLIN R INSULIN INFUSION 100 IV (13:05)
[2024-12-20] MEDS: FERRLECIT 110 MG IV (14:06)
--- NOTE | 2024-12-20 14:07 | W.PN.CD ---
Today's Communication / Plan
-
- Okay to resume metoprolol today.
- Weaning off pressors
Impression / Plan
-
I/P: 79 Lao M with HTN, HLD, and T2DM, who presented with accelerating angina to Dr. Paetl which prompted cardiac catheterization which found multivessel disease. He is here for CABG.
Primary regulatory affairs consultant: Dr. Patel
CAD s/p CABG x 4 (In situ SCHREIBER to LAD, Ao to RSVG to OM1, Ao to RSVG to LPL sequential to LPDA) by Dr. Lynn 12/19/2024
- No CARLOS, probe unable to be passed
- EKG: Sinus rhythm with first-degree AV block, junctional in OR and required transient pacing
- On low-dose Levophed - Wean off and then start beta-blockers.
- Follow telemetry
- First-degree AV block yesterday and postop.No first-degree AV block has resolved. Back to normal.
- No indication for pacemaker. Okay to start metoprolol 12.5 mg twice a day.
Hypertension
- Follow postoperatively, lisinopril on hold preoperatively
- Will resume low-dose beta-blockers metoprolol 12.5 mg twice a day.
Hypercholesterolemia
- No recent lipid panel for review, continue rosuvastatin 20 mg
Type 2 diabetes mellitus with hyperglycemia
- HgbA1c 7.7%, on insulin drip
Physical Exam
Vital Signs/Labs
Vital Signs
Temp Pulse Resp BP Pulse Ox
98.4 F 89 18 113/58 95
12/20/24 09:00 12/20/24 12:12 12/20/24 12:11 12/20/24 12:12 12/20/24 12:11
12/19/24 12/20/24 12/21/24
06:59 06:59 06:59
Actual Weight 62.9 kg 62.9 kg
12/20/24 02:52
12/20/24 02:52
PT 18.2 Sec (11.4-14.6) H 12/19/24 11:59
INR 1.49 12/19/24 11:59
APTT 41.2 Sec (23.4-35.0) H 12/19/24 11:59
Magnesium 2.3 mg/dl (1.6-2.3) 12/20/24 02:52
Physical Exam
Constitutional: No acute distress and Comfortable
EENT: Anicteric and Moist mucous membranes
Cardiovascular: Rhythm & rate is regular, Pedal edema is absent and JVD pressure is normal
Respiratory: Respiratory effort normal, Lungs clear to auscul. and Wheeze Absent
GI: Soft, Normal bowel sounds and Distention present
Neuro/Psych: Alert, Oriented and AO x 3
Other: Skin
Data Reviewed
-
Date of Service: December 20, 2024
Medical Decision Making: Reviewed Test Results, Test Interpretation and Review of Case with other Provider
EKG: Tracing Personally Visualized and interpreted
Echo: Report Reviewed by me
Labs: Labs Reviewed by me
Old Records: Reviewed
Critical Care Time (in minutes): 35
[2024-12-20 14:13] LABS: Glucose - Point of Care 183 mg/dl (70-99)
[2024-12-20] MEDS: NEURONTIN PO (16:14)
[2024-12-20 16:15] LABS: Glucose - Point of Care 199 mg/dl (70-99)
[2024-12-20 17:55] LABS: Glucose - Point of Care 80 mg/dl (70-99)
--- NOTE | 2024-12-20 17:57 | PTCARENOTE ---
d/c L pleural chest tube without incident. VSS. assessment remains unchanged. wires insulated.
[2024-12-20] MEDS: NOVOLOG FLEXPEN SC (17:59)
[2024-12-20 19:09] LABS: Glucose - Point of Care 219 mg/dl (70-99)
--- NOTE | 2024-12-20 20:00 | PTCARENOTE ---
assumed care of pt from previous RN. pt A&Ox4, resting in bed at time of assessment. SR w/ 1st degree AVB on tele-monitor. temp epicardial v-wires insulated. POX 92-93% on RA. CT x2 (mediastinal x2) to -20cm wall suction, draining serosanguineous
drainage. abd s/n, +BS. pt passing gas. all surgical sites stable, CDI. R IJ cordis w/ KVO. see worklist for complete nursing assessment, interventions, VS, and I&Os.
[2024-12-20 20:25] LABS: Glucose - Point of Care 148 mg/dl (70-99)
[2024-12-20 22:02] LABS: Glucose - Point of Care 65 mg/dl (70-99)
[2024-12-20 22:26] LABS: Glucose - Point of Care 87 mg/dl (70-99)
[2024-12-20 23:19] LABS: Glucose - Point of Care 143 mg/dl (70-99)
[2024-12-21] VITALS (18 sets, daily range): BP systolic 94–131; BP diastolic 49–72; PULSE 90; O2SAT 93–94; BMI 22.8
[2024-12-21 00:17] LABS: Glucose - Point of Care 131 mg/dl (70-99)
--- NOTE | 2024-12-21 00:20 | PTCARENOTE ---
assessment remains unchanged. VSS.
[2024-12-21 01:21] LABS: Glucose - Point of Care 113 mg/dl (70-99)
[2024-12-21 02:24] LABS: Glucose - Point of Care 93 mg/dl (70-99)
[2024-12-21 02:29] LABS: Hematocrit 28.9 % (39.0-52.0); Hemoglobin 9.1 g/dL (13.0-18.0); Mean Corp Hgb Conc. 31.5 g/dL (33.0-37.0); Mean Corpuscular Volume 91.5 fL (80.0-94.0); Platelet Count 198 10^3/uL (130-400); Red Cell Dist. Width 12.8 % (11.5-14.5)
[2024-12-21 03:02] LABS: Blood Urea Nitrogen 28 mg/dl (9-20); Calcium 8.9 mg/dl (8.4-10.2); Carbon Dioxide 27 mmol/L (22-30); Chloride 104 mmol/L (98-107); Estimated Creatinine Clearance 57 ml/min; Glucose 85 mg/dl (70-99); Magnesium 2.1 mg/dl (1.6-2.3); Potassium 3.9 mmol/L (3.5-5.1); Sodium 135 mmol/L (135-145); eGFR > 60.00
[2024-12-21 03:16] LABS: Glucose - Point of Care 122 mg/dl (70-99)
--- NOTE | 2024-12-21 04:00 | PTCARENOTE ---
no acute changes. VSS. CT drainage WNL.
[2024-12-21 05:50] LABS: Glucose - Point of Care 126 mg/dl (70-99)
[2024-12-21] MEDS: TYLENOL 975 MG PO ×3 (05:51→22:19)
[2024-12-21] MEDS: KCL 20 MEQ PO (05:51)
--- NOTE | 2024-12-21 07:53 | W.PN.CD ---
Today's Communication / Plan
-
doing well
chest tube management per CTS
OOB, IS
Impression / Plan
-
I/P: 79 Pashto M with HTN, HLD, and T2DM, who presented with accelerating angina to Dr. Patel which prompted cardiac catheterization which found multivessel disease. He is here for CABG.
Primary traffic ii manager: Dr. Patel
CAD s/p CABG x 4 (In situ SCHREIBER to LAD, Ao to RSVG to OM1, Ao to RSVG to LPL sequential to LPDA) by Dr. Lynn 12/19/2024
- No CARLOS, probe unable to be passed
- EKG: Sinus rhythm with first-degree AV block, junctional in OR and required transient pacing
- Off norepi
- Follow telemetry
- First-degree AV block yesterday and postop. Now first-degree AV block has resolved.
- No indication for pacemaker.
- cont. low dose metoprolol
Hypertension
- Follow postoperatively, lisinopril on hold preoperatively, resume prior to discharge if BP room after addition of metop
Hypercholesterolemia
- No recent lipid panel for review, continue rosuvastatin 20 mg
Type 2 diabetes mellitus with hyperglycemia
- HgbA1c 7.7%, on insulin drip
Physical Exam
Vital Signs/Labs
Vital Signs
Temp Pulse Resp BP Pulse Ox
37.0 C 87 16 101/49 92
12/21/24 04:00 12/21/24 06:18 12/21/24 04:00 12/21/24 06:18 12/21/24 05:00
12/20/24 12/21/24 12/22/24
06:59 06:59 06:59
Actual Weight 62.9 kg 62.1 kg
12/21/24 02:21
12/21/24 02:21
PT 18.2 Sec (11.4-14.6) H 12/19/24 11:59
INR 1.49 12/19/24 11:59
APTT 41.2 Sec (23.4-35.0) H 12/19/24 11:59
Magnesium 2.1 mg/dl (1.6-2.3) 12/21/24 02:21
Physical Exam
Constitutional: Comfortable
Cardiovascular: Rhythm & rate is regular
Respiratory: Respiratory effort normal
Neuro/Psych: AO x 3
Data Reviewed
-
Date of Service: December 21, 2024
Medical Decision Making: Reviewed Test Results
Labs: Labs Reviewed by me
--- NOTE | 2024-12-21 08:05 | W.PN.INTV ---
Today's Communication / Plan
Recommendations
Incentive spirometry, pain control
Out of bed to chair, ambulate
Chest x-ray stable
Insulin drip being weaned
Once transferred to telemetry, we will sign off. Please call with questions
Assessment
-
79-year-old male with history of hypertension, hyperlipidemia, persistent angina found to have complex multivessel coronary disease per catheterization. He is status post CABG x 4 on 12/19/2024. We are asked to help from critical care standpoint
S/p CABG x 4, 12/19/24
Multivessel coronary disease, complex anatomy per catheterization 11/30/2024
EF 75%
Postoperative anemia
Hyperglycemia on insulin drip
First-degree AV block/junctional rhythm requiring transient pacing
IntraOp
Conditions present prior to admission
Hypertension/hyperlipidemia
Type 2 diabetes
Distant tobacco history, quit
Plan/recommendations
At this time, patient appears to be comfortable
mild splinting on exam, incisional discomfort
Weaned off norepinephrine
Hemoglobin stable
Remains on insulin drip, being weaned
Amiodarone being hold given postoperative junctional rhythm, first-degree heart block
Moving forward
Continue with management per CT surgery
Off pressors
Normal EF preoperatively
EKG with first-degree block
Beta-balbir being held, amiodarone being held
Follow urine output, creatinine
Remains on insulin drip. History of type 2 diabetes
Follow blood sugars
Diabetic FRUIT AND VEGETABLE FACTORY WORKER consulted
Insulin being weaned
Postoperative anemia, hemoglobin stable
Chest tube drainage minimal
CT chest from 12/14/2024 with minimal bibasilar interstitial changes
Mild bronchial airway thickening at the base
Calcified adenopathy, calcified granuloma
Distant tobacco history quit
No indication for follow-up imaging at this time
Reviewed with critical care nursing
Once transferred to telemetry, we will sign off
Please call with questions
Subjective Dataa
Subjective Data
Date of Service:
Date of Service: December 21, 2024
Subjective:
Patient sitting in chair, appears comfortable, mild incisional discomfort otherwise on room air
Objective Data
Data Reviewed
Vital Signs / I&O / Oxygen:
Vital Signs
Temp Pulse Resp BP Pulse Ox
98.6 F 87 16 101/49 92
12/21/24 04:00 12/21/24 06:18 12/21/24 04:00 12/21/24 06:18 12/21/24 05:00
Intake and Output
12/20/24 12/21/24 12/22/24
06:59 06:59 06:59
Intake Total 703.8 / 703.8 204.5 / 204.5
Output Total 1655 / 1655 655 / 655
Balance -951.2 / -951.2 -450.5 / -450.5
SaO2 [CPAP] 99
SaO2 [SIMV] 99
SaO2 92
Nasal Cannula flow liters per 2
minute
Physical Exam
General: Comfortable and Other (Chest tube)
HEENT: Normocephalic and Anicteric
Cardiovascular: S1-S2, Regular Rhythm, Murmur (n), Rub (n), Peripheral Edema (n) and Other (Lower extremity bandage in place)
Respiratory: Wheeze (n), Crackles (n), Rhonchi (n), Non-Labored Respirations and Other (Mild splinting on exam)
GI: Soft, Non Distended and Non Tender
Neurology: Awake, Alert and No Motor Deficits
Skin: Cyanosis (n), Jaundice (n) and Rash (n)
Labs/Micro/Reports
Lab Data
12/21/24 02:21
12/21/24 02:21
Microbiology
12/19/24 08:00 Urine Urine Culture - Final
NO GROWTH
12/18/24 08:22 Nose MRSA Screen - Final
No Methicillin Resistant Staphylococcus aureus isolated.
--- NOTE | 2024-12-21 08:20 | W.PN.CT ---
Today's Communication / Plan
-
-pod #2
-no issues overnight. Hemodynamically and neurologically intact
-CT outputs: 2 meds 85/200 in 1224 hrs
-gave 20 KCL this am (K 3.9)
-Holding Amiodarone given postop Junctional/Wenckebach, long 1st deg HB. Restarted BB on 12/20
-Encourage use of IS
-OOB into chair/Ambulate
Assessment / Plan
-
Assessment:
-S/P Standard Sternotomy/Coronary artery bypass grafting x 4 (In situ SCHREIBER to LAD, Ao to RSVG to OM1, Ao to RSVG to LPL sequential to LPDA)/Endoscopic vein harvesting of right and left lower extremity/Left atrial appendage exclusion, by Dr. Lynn,
12/19/24, pod#2
-Multivessel coronary disease with crescendo angina
-Type 2 diabetes mellitus (hgb A1C 7.7)
-Hypertension
-Hyperlipidemia
-Elevated [id number] (5)
-Acute postop blood loss/Anemia (stable without transfusion)
-Acute postop atelectasis
-Acute postop hypovolemia with subsequent hypervolemia
-Intraop Junctional rhythm
-Acute postop Junctional rhythm
-Acute postop Wenckebach
-Suspected acute postop pericarditis/ + rub
Discussed patient care with: Nursing and Care Team
Subjective
Procedure
Standard Sternotomy/Coronary artery bypass grafting x 4 (In situ SCHREIBER to LAD, Ao to RSVG to OM1, Ao to RSVG to LPL sequential to LPDA)/Endoscopic vein harvesting of right and left lower extremity/Left atrial appendage exclusion, by Dr. Lynn, 12/19/24
-
Date of Service: December 21, 2024
Objective Data
-
Lab Results
12/21/24 02:21
12/21/24 02:21
PT 18.2 Sec (11.4-14.6) H 12/19/24 11:59
INR 1.49 12/19/24 11:59
APTT 41.2 Sec (23.4-35.0) H 12/19/24 11:59
Vital Signs
Vital Signs
Temp Pulse Resp BP Pulse Ox
98.6 F 87 16 101/49 92
12/21/24 04:00 12/21/24 06:18 12/21/24 04:00 12/21/24 06:18 12/21/24 05:00
CT Intake/Output/Weight
12/20/24 12/21/24 12/21/24
18:59 06:59 18:59
Intake Total 94.6 / 204.5 109.9 / 204.5
Output Total 145 / 655 510 / 655
Balance -50.4 / -450.5 -400.1 / -450.5
SaO2: 92
Physical Exam
-
General: Awake and AOx3
Cardiovascular: Regular rate & rhythm, No Murmurs and Rub
Respiratory: Decreased Breath Sounds
Sternum: Stable
Incision: Clean, Dry and Intact
Extremities: No Edema
Abdomen: soft, nontender, nondistended, + bowel sounds
Data Reviewed
-
Lab Results: Results Reviewed
Medications: Active Meds Reviewed
Chest X-Ray: Report Reviewed and Image Reviewed
ECG: Report Reviewed and Image Reviewed
--- NOTE | 2024-12-21 08:46 | PN.DE.MGMTRT ---
Insulin Management
- -
12/21/2024 Diabetes Management Consult Follow up
Patient admitted 12/19 for CABG. PMH HTN, HLD, diabetes, hyperkalemia, cardiac cath 11/30/24 - MV CAD. Prior to admission was taking glipizide 10 mg daily, metformin 500 mg daily. A1C 7.7%, cr 1, eGFR > 60.
POD 2 patient is awake alert and oriented oob in chair. Speaks Upper Sorbian only. Discussed diabetes care using parts interpreter 797. Patient has had diabetes 15 years, follows with family doctor for diabetes care. Uses [employer] 2 CGM for glucose
monitoring. Confirmed his home diabetes medications. Discussed via parts interpreter his A1C 7.7% and benefit of SGLT-2. Patient is in agreement.
Patient currently receiving critical care glycemic protocol insulin infusion requiring .6 to 3.5 units of insulin. Will continue insulin infusion today until after lunch. Will resume home glipizide 10 mg daily and metformin 500 mg daily and ADD
Farxiga 10 mg daily with low corrective insulin to start with dinner. To receive PO meds in AM and drip to be stopped after lunch.
CM checked cost of Farxiga - $15/month.
Discussed with nurse
Will follow.
Diabetes History
- -
Type of Diabetes: 2
Pre-Admission Diabetes Regimen
12/21/24
02:21
Creatinine 0.9
Lab Results
Hemoglobin A1c 7.7 % (4.0-5.9) H 12/18/24 08:20
Insulin Pump Settings
IP Diabetes Regimen
12/20/24 12/20/24 12/20/24
09:39 09:45 12:07
Glucose
POC Glucose 88 94 165 H
12/20/24 12/20/24 12/20/24
14:12 16:12 17:54
Glucose
POC Glucose 183 H 199 H 80
12/20/24 12/20/24 12/20/24
19:07 20:16 22:00
Glucose
POC Glucose 219 H 148 H 65 L
12/20/24 12/20/24 12/21/24
22:24 23:15 00:16
Glucose
POC Glucose 87 143 H 131 H
12/21/24 12/21/24 12/21/24
01:19 02:21 03:14
Glucose 85
POC Glucose 113 H 93 122 H
12/21/24
05:42
Glucose
POC Glucose 126 H
Meal type: Dinner
Amount consumed: 75%
Patient Education
[2024-12-21 08:51] LABS: Glucose - Point of Care 98 mg/dl (70-99)
[2024-12-21] MEDS: SENOKOT 8.6 MG PO (08:55)
[2024-12-21] MEDS: LOPRESSOR 12.5 MG PO (08:55)
[2024-12-21] MEDS: MAGNESIUM OXIDE 400 MG PO ×2 (08:55→19:51)
[2024-12-21] MEDS: NEURONTIN 100 MG PO ×3 (08:55→22:18)
[2024-12-21] MEDS: LIDOCAINE 4% PATCH 1 PATCH TOPICAL (08:55)
[2024-12-21] MEDS: PLAVIX 75 MG PO (08:55)
[2024-12-21] MEDS: LASIX 20 MG IV (08:55)
[2024-12-21] MEDS: CRESTOR 20 MG PO (08:55)
[2024-12-21] MEDS: LOW STRENGTH ASPIRIN 81 MG PO (08:55)
[2024-12-21] MEDS: PROTONIX 40 MG PO (08:55)
[2024-12-21] MEDS: BACTROBAN 2% OINTMENT 1 APPLIC NASAL ×2 (08:56→19:52)
--- NOTE | 2024-12-21 09:23 | PTCARENOTE ---
assumed care of pt from previous shift RN, sinus rhythm on tele w 1st degree HB, pacing wire pulled by CT JENNI. + peripheral pulses, no edema noted. Lungs clear, pox 98% on RA. +bs, tolerating PO intake. Voids yellow. Surgical sites stable. Right IJ
cordis w KVO and insulin infusing. CT x2 w minimal amount of drainage. plan of care reviewed using Swedish commercial roofer, questions encouraged.
[2024-12-21] MEDS: NOVOLOG FLEXPEN 4 UNITS SC (09:43)
[2024-12-21] MEDS: FARXIGA 10 MG PO (10:33)
[2024-12-21] MEDS: GLUCOPHAGE 500 MG PO (10:33)
[2024-12-21] MEDS: GLUCOTROL 10 MG PO (10:33)
[2024-12-21] MEDS: MILK OF MAGNESIA 30 ML PO (10:38)
[2024-12-21] MEDS: NSS 500 IV (10:38)
--- NOTE | 2024-12-21 11:00 | PTCARENOTE ---
Mediastinal CTs removed without incident.
[2024-12-21 11:24] LABS: Glucose - Point of Care 167 mg/dl (70-99)
[2024-12-21 13:17] LABS: Glucose - Point of Care 67 mg/dl (70-99)
[2024-12-21] MEDS: NOVOLOG FLEXPEN SC ×2 (13:18→16:09)
--- NOTE | 2024-12-21 13:18 | PTCARENOTE ---
BG 67. Pt asymptomatic, lunch tray here. Will recheck after meal.
[2024-12-21] MEDS: FERRLECIT 110 MG IV (14:03)
[2024-12-21] MEDS: NOVOLOG FLEXPEN-LOW RESISTANCE 2 UNITS SC (15:32)
[2024-12-21 15:33] LABS: Glucose - Point of Care 234 mg/dl (70-99)
--- NOTE | 2024-12-21 15:58 | PTCARENOTE ---
assisted pt w ambulating in hallway, tolerated well, sinus rhythm maintained.
[2024-12-21] MEDS: SENOKOT PO (19:52)
[2024-12-21] MEDS: LOPRESSOR 25 MG PO (19:52)
[2024-12-21] MEDS: PACERONE 200 MG PO (22:19)
[2024-12-21 23:56] LABS: Glucose - Point of Care 153 mg/dl (70-99)
--- NOTE | 2024-12-22 00:25 | PTCARENOTE ---
Assumed care of patient at 1900. Patient found oob in chair at time of assessment. Patient primarily Croatian speaking assessment conducted in part with assistance of pipe stripper. Patient is AOx4, follows commands appropriately, moves all extremities.
Lung sounds are clear and equal bilaterally, saO2 96% on RA. Heart sounds are audible, patient is SR on the monitor, normal palpable pulses and no observable edema. Patient has active BS in all four quadrants, reports BM today, and is voiding in
bathroom. Patient has sternal incision approx with surg adhesive CYN, bilateral groin puncture approx with surg adhesive CYN, and bilateral leg incisions approx with surg adhesive CYN. Patient has R IJ cordis receiving KVO and R FA PIV. No c/o pain.
VSS. Call fuller within reach.
[2024-12-22 03:32] VITALS: BP 115/60
[2024-12-22 03:49] LABS: Hematocrit 29.7 % (39.0-52.0); Hemoglobin 9.2 g/dL (13.0-18.0); Mean Corp Hgb Conc. 31.0 g/dL (33.0-37.0); Mean Corpuscular Volume 92.8 fL (80.0-94.0); Platelet Count 227 10^3/uL (130-400); Red Cell Dist. Width 12.6 % (11.5-14.5)
--- NOTE | 2024-12-22 04:00 | PTCARENOTE ---
Patient reassessed. Remains SR on the monitor. AM labs obtained. AM hygiene care provided. Call fuller within reach.
[2024-12-22 04:12] LABS: Blood Urea Nitrogen 25 mg/dl (9-20); Calcium 8.6 mg/dl (8.4-10.2); Carbon Dioxide 29 mmol/L (22-30); Chloride 101 mmol/L (98-107); Estimated Creatinine Clearance 51 ml/min; Glucose 126 mg/dl (70-99); Magnesium 2.3 mg/dl (1.6-2.3); Potassium 4.1 mmol/L (3.5-5.1); Sodium 138 mmol/L (135-145); eGFR > 60.00
[2024-12-22 05:52] VITALS: BMI 22.4
[2024-12-22] MEDS: TYLENOL 975 MG PO ×2 (06:51→13:54)
--- NOTE | 2024-12-22 07:32 | PN.DE.MGMTRT ---
Insulin Management
- -
12/22/2024: Diabetes Management Follow up
Patient admitted 12/19 for CABG. PMH HTN, HLD, diabetes, hyperkalemia, cardiac cath 11/30/24 - MV CAD. Prior to admission was taking glipizide 10 mg daily, metformin 500 mg daily. Patient has had diabetes 15 years, follows with family doctor for
diabetes care. Uses Johny 2 CGM for glucose monitoring. Confirmed his home diabetes medications. A1C 7.7%, cr 1, eGFR > 60.
Patient is awake alert and oriented OOB in chair. POD # 3. Speaks Bengali only. Discussed diabetes care using fitter's assistant LH [id number].
Transitioned off critical care glycemic protocol insulin infusion yesterday after lunch.
Discussed via fitter's assistant his A1C 7.7% and benefit of SGLT-2. Patient was in agreement. Farxiga 10 mg daily was added, glipizide and metformin were resumed
HS glucose was 157, Fasting 126 V, 145 POC. Will make no changes to current regimen: Farxiga 10 mg daily, Metformin 500mg daily and Glipizide 10mg daily with low corrective insulin AC.
CM checked cost of Farxiga - $15/month.
Discussed with nurse. Will cont to follow.
Diabetes History
- -
Type of Diabetes: 2
Pre-Admission Diabetes Regimen
12/22/24
03:37
Creatinine 1.0
Lab Results
Hemoglobin A1c 7.7 % (4.0-5.9) H 12/18/24 08:20
Insulin Pump Settings
IP Diabetes Regimen
12/21/24 12/21/24 12/21/24
08:49 11:21 13:15
Glucose
POC Glucose 98 167 H 67 L
12/21/24 12/21/24 12/22/24
15:31 23:55 03:37
Glucose 126 H
POC Glucose 234 H 153 H
Meal type: Breakfast
Amount consumed: 100%
Patient Education
[2024-12-22 07:37] LABS: Glucose - Point of Care 145 mg/dl (70-99)
[2024-12-22 07:38] VITALS: BP 116/61
[2024-12-22] MEDS: PLAVIX 75 MG PO (07:41)
[2024-12-22] MEDS: PROTONIX 40 MG PO (07:41)
[2024-12-22] MEDS: LOW STRENGTH ASPIRIN 81 MG PO (07:42)
[2024-12-22] MEDS: FARXIGA 10 MG PO (07:42)
[2024-12-22] MEDS: SENOKOT 8.6 MG PO (07:42)
[2024-12-22] MEDS: CRESTOR 20 MG PO (07:42)
[2024-12-22] MEDS: GLUCOPHAGE 500 MG PO (07:42)
[2024-12-22] MEDS: GLUCOTROL 10 MG PO (07:42)
[2024-12-22] MEDS: NEURONTIN 100 MG PO (07:42)
[2024-12-22] MEDS: PACERONE 200 MG PO (07:42)
[2024-12-22] MEDS: NOVOLOG FLEXPEN-LOW RESISTANCE SC (07:43)
[2024-12-22] MEDS: NOVOLOG FLEXPEN SC ×2 (07:43→12:34)
[2024-12-22] MEDS: MAGNESIUM OXIDE 400 MG PO (07:43)
[2024-12-22] MEDS: TOPROL XL 50 MG PO (07:59)
[2024-12-22] MEDS: BACTROBAN 2% OINTMENT 1 APPLIC NASAL (08:00)
[2024-12-22] MEDS: LIDOCAINE 4% PATCH TOPICAL (08:00)
--- NOTE | 2024-12-22 08:31 | PTCARENOTE ---
Rec'd pt this shift awake and alert. [employer] Operator used via tablet for all medication administrations and communication. Pt denies pain, denies sob. RA, lungs clear. NSR on monitor. Pt AAOX3. See worklist for VS/I and O and assessments.
--- NOTE | 2024-12-22 08:37 | W.PN.CT ---
Today's Communication / Plan
-
-pod #3
-no issues overnight. Hemodynamically and neurologically intact
-Amio restarted. Currently, on Toprol 50 qd
-Encourage use of IS
-OOB into chair/Ambulate
-possible d/c soon
Assessment / Plan
-
Assessment:
-S/P Standard Sternotomy/Coronary artery bypass grafting x 4 (In situ SCHREIBER to LAD, Ao to RSVG to OM1, Ao to RSVG to LPL sequential to LPDA)/Endoscopic vein harvesting of right and left lower extremity/Left atrial appendage exclusion, by Dr. Lynn,
12/19/24, pod#3
-Multivessel coronary disease with crescendo angina
-Type 2 diabetes mellitus (hgb A1C 7.7)
-Hypertension
-Hyperlipidemia
-Elevated [id number] (5)
-Acute postop blood loss/Anemia (stable without transfusion)
-Acute postop atelectasis
-Acute postop hypovolemia with subsequent hypervolemia
-Intraop Junctional rhythm
-Acute postop Junctional rhythm
-Acute postop Wenckebach
-Suspected acute postop pericarditis/ + rub
Discussed patient care with: Nursing and Care Team
Subjective
Procedure
Standard Sternotomy/Coronary artery bypass grafting x 4 (In situ SCHREIBER to LAD, Ao to RSVG to OM1, Ao to RSVG to LPL sequential to LPDA)/Endoscopic vein harvesting of right and left lower extremity/Left atrial appendage exclusion, by Dr. Lynn, 12/19/24
-
Date of Service: December 22, 2024
Objective Data
-
Lab Results
12/22/24 03:37
12/22/24 03:37
PT 18.2 Sec (11.4-14.6) H 12/19/24 11:59
INR 1.49 12/19/24 11:59
APTT 41.2 Sec (23.4-35.0) H 12/19/24 11:59
Vital Signs
Vital Signs
Temp Pulse Resp BP Pulse Ox
99.0 F 85 18 116/61 95
12/22/24 07:39 12/22/24 08:00 12/22/24 07:39 12/22/24 07:59 12/22/24 07:39
CT Intake/Output/Weight
12/21/24 12/22/24 12/22/24
18:59 06:59 18:59
Intake Total 112.3 / 152.3 40 / 152.3 500 / 500
Output Total 20 / 720 700 / 720
Balance 92.3 / -567.7 -660 / -567.7 500 / 500
SaO2: 95
Physical Exam
-
General: Awake and AOx3
Cardiovascular: Regular rate & rhythm, No Murmurs and Rub
Respiratory: Rales
Sternum: Stable
Incision: Clean, Dry and Intact
Extremities: No Edema
Abdomen: soft, nontender, nondistended, +bowel sounds
Data Reviewed
-
Lab Results: Results Reviewed
Medications: Active Meds Reviewed
Chest X-Ray: Report Reviewed and Image Reviewed
ECG: Report Reviewed and Image Reviewed
[2024-12-22 09:39] VITALS: BP 104/63
[2024-12-22 09:49] VITALS: BP 100/57
[2024-12-22 09:55] VITALS: BP 100/57; BP 104/63; PULSE 82; O2SAT 96; O2SAT 98
--- NOTE | 2024-12-22 11:15 | W.DCSUMMARY ---
Discharge Summary
Discharge Data
Date of Admission: 12/19/24
Date of Discharge: 12/22/24
-
Pending Results: No
Hospital Course
Primary care physician:
Dr. Isai Jim
Outpatient medical records supervisor:
Dr. Patel
Inpatient consultants:
CBC, manager business, DM management bliss press operator
Procedures:
1. Standard Sternotomy/Coronary artery bypass grafting x 4 (In situ SCRHEIBER to LAD, Ao to RSVG to OM1, Ao to RSVG to LPL sequential to LPDA)/Endoscopic vein harvesting of right and left lower extremity/Left atrial appendage exclusion, by Dr. Lynn,
12/19/24
Primary Diagnosis:
1. Multivessel Coronary Artery disease
Secondary Diagnoses:
1. Type 2 diabetes
2. Hypertension
3. Hyperlipidemia
4. Acute postop atelectasis
5. Acute postop hypovolemia with subsequent hypervolemia
6 Intraop Junctional rhythm
7 Acute postop Junctional rhythm (resolved)
8 Acute postop Wenckebach (resolved)
HPI: 79 y/o welsh speaking male presented on 12/19 for elective CABG with Dr. Lynn
Hospital course:
Patient was electively admitted on 12/19 for an elective CABG with Dr. Lynn. Intraoperatively patient had a junctional rhythm in the OR which resolved on its own. He returned to CVICU for the remainder of his recovery on Levophed, Precedex, and
insulin infusions. During recovery patient was noted to be in a winky block and beta-blockers and amiodarone was placed on hold. Patient was weaned off Precedex and was extubated that night. On 12/20 postoperative day 1, patient's rhythm remained
stable in sinus rhythm so low-dose beta-balbir was started after discussion with electrophysiology. Left pleural was DC'd and wires discontinued. On 12/21 postoperative day 2 patient's beta-blockers were increased and amiodarone was resumed. He
was diuresed with Lasix epicardial wires were discontinued along with mediastinal chest tubes. Farxiga was started for diabetes management. On 12/22 postoperative day 3 patient's Cordis was removed. Beta-blockers were again increased for heart
rate control. He was deemed stable for discharge home.
Home medication changes:
see below
Discharge Plan
-
Patient Disposition: Home (Routine Discharge)
Discharge Diagnosis/Procedures: Standard Sternotomy/Coronary artery bypass grafting x 4 (In situ SCHREIBER to LAD, Ao to RSVG to OM1, Ao to RSVG to LPL sequential to LPDA)/Endoscopic vein harvesting of right and left lower extremity/Left atrial appendage
exclusion, by Dr. Lynn, 12/19/24,
Condition: Good
Diet: Low Cholesterol and 2 Gram Sodium
Activity: No strenuous activity
Driving Restrictions: Not until seen by your Dr
Bathing Restrictions: OK to Shower
Other Services: Cardiac Rehab
Specialty Instructions: Weigh Daily- Call MD for wt gain/loss 3 lbs overnight/5 lbs in 1 week
Activity Restrictions/Additional Instructions:
ACTIVITY:
-No strenuous activity: no heavy lifting, pushing, pulling anything over 15 pounds for one month
-continue to use stairs as tolerated
DRIVING RESTRICTIONS:
-No driving for one month or until approved by your surgeon
WOUND CARE:
-Shower daily. Use soap & water.
-No lotions, creams or powders on incision area.
DIET:
-continue a low fat/low cholesterol diet.
-IF you are diabetic, continue carb controlled diet.
CARDIAC REHAB:
-Please make appointment to start in 5-6 weeks with your local hospital program. (See Cardiac Rehabilitation Discharge Booklet).
SPECIALTY INSTRUCTIONS:
-Weigh yourself daily. Call your physician for any weight gain/loss of 3 lbs overnight or 5 lbs in one week.
-REPORT any clicking noise or uneven appearance of your sternum to your surgeon immediately.
-If you smoke, you are instructed to quit. The [place] smoking hotline phone number is [phone]
Referrals:
CT Transitional Care Nurse [Outside]
Referral Note:
The Cardiothoracic Transitional Care Nurse will call you to set up a visit in 1-2 days.
[facility] [Outside] - 01/24/25 10:00 am
Referral Note: Cardiac Rehab Orientation and� First Exercise appointment is on _01/24/25 at 10:00 am.____
The Cardiac Rehab gym is located on the first floor of the [facility].
Isai Jim MD [Family Provider, Internal Medicine]
Oscar Patel MD [Active, Cardiology] - 02/06/25 8:40 am
Virgil Lynn MD [Active, Cardiac Surgery] - 01/22/25 2:45 pm
Prescriptions:
New
acetaminophen 325 mg Tablet
650 mg PO Q4HPRN PRN (Reason: mild pain,headache,temp >101F ) Qty: 0 0RF
clopidogrel 75 mg Tablet
75 mg PO DAILY Qty: 60 0RF
dapagliflozin propanediol 10 mg Tablet
10 mg PO DAILY Qty: 30 0RF
Continued
metformin 500 mg Tablet
500 mg PO DAILY
glipizide 10 mg Tablet
10 mg PO DAILY
fenofibrate micronized 134 mg Capsule
134 mg PO DAILY
aspirin 81 mg Tablet,Chewable
81 mg PO DAILY
rosuvastatin 20 mg tablet
20 mg PO DAILY
Changed
metoprolol succinate 25 mg Tablet Extended Release 24 Hr
50 mg PO DAILY Qty: 30 1RF
Held
omega 8-qah-myn-fish oil 900-1,400 mg Capsule,Delayed Release(Dr/Ec)
1 cap PO DAILY
Hold Instructions: Resume on 12/29/24.
Discontinued
lisinopril 20 mg Tablet
20 mg PO DAILY
isosorbide mononitrate 30 mg tablet extended release 24 hr
30 mg PO DAILY
Discharge Orders:
Discharge Patient (As Directed); Ordered 12/22/24
Ordered By: Evelyn Fontenot
Care Plan Goals
Care Plan Goals:
Problem: Readiness for enhanced knowledge related to diagnosis and treatment plan
Goal: Understand your diagnosis and treatment plan needs, including medications if applicable.
Instructions: Know your diagnosis, underlying causes and treatment plan options, including medications if applicable. Consult with your health care team to learn about your diagnosis and treatment plan, including medications if applicable.
Problem: Readiness for enhanced knowledge related to diagnosis and treatment plan
Goal: Understand your diagnosis and treatment plan needs, including medications if applicable.
Instructions: Know your diagnosis, underlying causes and treatment plan options, including medications if applicable. Consult with your health care team to learn about your diagnosis and treatment plan, including medications if applicable.
Discharge Date and Time
Print Language: Belarusian
[2024-12-22 12:29] VITALS: BP 114/67
[2024-12-22] MEDS: NSS IV (12:34)
[2024-12-22] MEDS: NOVOLOG FLEXPEN-LOW RESISTANCE 1 UNITS SC (12:34)
[2024-12-22 12:35] LABS: Glucose - Point of Care 150 mg/dl (70-99)
--- NOTE | 2024-12-22 15:05 | PTCARENOTE ---
INT d/c'd. discharge instructions given to patient, patients daughter and patients . Encouraged questions.
== END 2024-12-22 15:35 | disposition home or self-care (01) | DRG 236 ==
LOC: CVICU 07:08
PROVIDERS: Anesthesiology; Clinical Nurse Specialist Acute Care; ADMITTING PHYSICIAN Thoracic Surgery (Cardiothoracic Vascular Surgery); CONSULT PHYSICIAN Internal Medicine Cardiovascular Disease; CONSULT PHYSICIAN Internal Medicine Critical Care Medicine; FAMILY PHYSICIAN Internal Medicine
PROC: 021209W Bypass Coronary Artery, Three Arteries from Aorta with Autologous Venous Tissue, Open Approach (ICD-10-PCS; 2024-12-19)
PROC: B24BZZ4 Ultrasonography of Heart with Aorta, Transesophageal (ICD-10-PCS; 2024-12-19)
PROC: 06BQ4ZZ Excision of Left Saphenous Vein, Percutaneous Endoscopic Approach (ICD-10-PCS; 2024-12-19)
PROC: 02L70CK Occlusion of Left Atrial Appendage with Extraluminal Device, Open Approach (ICD-10-PCS; 2024-12-19)
PROC: 06BP4ZZ Excision of Right Saphenous Vein, Percutaneous Endoscopic Approach (ICD-10-PCS; 2024-12-19)
PROC: 02100Z9 Bypass Coronary Artery, One Artery from Left Internal Mammary, Open Approach (ICD-10-PCS; 2024-12-19)
DX: I25.110 Atherosclerotic heart disease of native coronary artery with unstable angina pectoris (principal); D62 Acute posthemorrhagic anemia; J98.11 Atelectasis; I30.8 Other forms of acute pericarditis; I44.1 Atrioventricular block, second degree; E86.1 Hypovolemia; E87.70 Fluid overload, unspecified; E11.65 Type 2 diabetes mellitus with hyperglycemia; I10 Essential (primary) hypertension; E78.00 Pure hypercholesterolemia, unspecified; Z87.891 Personal history of nicotine dependence; Z79.84 Long term (current) use of oral hypoglycemic drugs
CPT/HCPCS: 36415; 71045; 71046; 80048; 80053; 81003; 81015; 82248; 82330; 82565; 82805; 82810; 82947; 82962; 83036; 83735; 84132; 84302; 84520; 85014; 85018; 85025; 85027; 85049; 85610; 85730; 86706; 86803; 86850; 86900; 86901; 86920; 87070; 87086; 87340; 87389; 93005; 93880; 94002; J2916; P9047

== ENCOUNTER 2025-02-19 16:30 | Outpatient (RCR) | payer OTHER, SELFPAY ==
[2025-01-24 10:58] LABS: Glucose - Point of Care 236 mg/dl (70-99)
[2025-01-24 11:37] LABS: Glucose - Point of Care 179 mg/dl (70-99)
[2025-01-26 06:32] LABS: Glucose - Point of Care 160 mg/dl (70-99)
[2025-01-26 07:26] LABS: Glucose - Point of Care 189 mg/dl (70-99)
[2025-01-31 16:01] LABS: Glucose - Point of Care 208 mg/dl (70-99)
[2025-01-31 16:54] LABS: Glucose - Point of Care 183 mg/dl (70-99)
[2025-02-02 15:41] LABS: Glucose - Point of Care 178 mg/dl (70-99)
[2025-02-02 16:37] LABS: Glucose - Point of Care 147 mg/dl (70-99)
[2025-02-05 15:45] LABS: Glucose - Point of Care 182 mg/dl (70-99)
[2025-02-05 16:37] LABS: Glucose - Point of Care 118 mg/dl (70-99)
[2025-02-07 14:54] LABS: Glucose - Point of Care 231 mg/dl (70-99)
[2025-02-07 15:43] LABS: Glucose - Point of Care 157 mg/dl (70-99)
[2025-02-09 15:22] LABS: Glucose - Point of Care 132 mg/dl (70-99)
[2025-02-09 16:18] LABS: Glucose - Point of Care 109 mg/dl (70-99)
== END 2025-02-19 23:59 | disposition home or self-care (01) ==
LOC: CRHB 16:30
PROVIDERS: ATTENDING PHYSICIAN Internal Medicine Cardiovascular Disease
DX: I25.10 Atherosclerotic heart disease of native coronary artery without angina pectoris (principal); Z95.1 Presence of aortocoronary bypass graft (principal)
CPT/HCPCS: 82962; 93797; 93798